=== PATIENT | male | born 1995 | race Caucasian/White ===

== ENCOUNTER 2021-10-25 21:27 | Emergency (ER) | payer SELFPAY ==
[~2021-10-25] VITALS: Ht 175.3 cm; Wt 86.4 kg
[2021-10-25 21:40] VITALS: BP 128/78
== END 2021-10-25 22:00 | disposition left against medical advice (07) ==
LOC: EMS 21:32
DX: M25.571 Pain in right ankle and joints of right foot (principal); Z53.21 Procedure and treatment not carried out due to patient leaving prior to being seen by health care provider

== ENCOUNTER 2021-10-26 11:35 | Emergency (ER) | payer BC ==
[~2021-10-26] VITALS: Ht 175.3 cm; Wt 86.4 kg
[2021-10-26 15:46] VITALS: BP 115/63
== END 2021-10-26 16:09 | disposition home or self-care (01) ==
LOC: EMS 11:38
DX: S13.4XXA Sprain of ligaments of cervical spine, initial encounter (principal); S93.401A Sprain of unspecified ligament of right ankle, initial encounter; Z88.0 Allergy status to penicillin; V43.52XA Car driver injured in collision with other type car in traffic accident, initial encounter; Y93.89 Activity, other specified; Y92.488 Other paved roadways as the place of occurrence of the external cause; Y99.8 Other external cause status
CPT/HCPCS: 72050; 99284; 73610-TC; Z7502